=== PATIENT | female | born 1955 | race American Indian/Alaskan Native ===

== ENCOUNTER 2016-12-09 10:15 | Outpatient (CLI) | payer OTHER ==
--- NOTE | 2016-12-10 10:22 | Mammography Report ---
BILATERAL DIGITAL SCREENING MAMMOGRAM with CAD: 12/09/16 10:15:00 CLINICAL: Routine screening. COMPARISON:04/10/15 FINDINGS: The breasts are almost entirely fatty.Vague asymmetries correlate with bilateral skin lesions that are marked with scar markers. Bilateral benign calcifications. No mass, architectural distortion or suspicious calcifications. IMPRESSION: No mammographic evidence of malignancy. BI-RADS CATEGORY: 2 -- Benign RECOMMENDATION: Routine mammographic screening in one year. COMMENT: Patient follow-up letters are generated by our [employer] application.
== END 2016-12-09 10:16 | disposition home or self-care (01) ==
LOC: SPVWC 10:15
DX: Z12.31 Encounter for screening mammogram for malignant neoplasm of breast (principal)
CPT/HCPCS: 77067; G0202

== ENCOUNTER 2017-06-07 13:00 | Outpatient (CLI) | payer OTHER ==
--- NOTE | 2017-06-07 15:16 | XRay Report ---
Bilateral knees: History: Knee pain. Findings: Right knee: Minimal medial lateral and patellofemoral compartment degenerative sclerotic because of the peripheral osteophyte suggesting degenerative changes being most pronounced at the patellofemoral compartment. Left knee: Narrowing of the medial and patellofemoral compartment degenerative sclerotic articular surfaces with osteophyte suggesting degenerative changes being most pronounced in the patellofemoral compartment. Impression: Degenerative changes right and left knee as detailed above.
== END 2017-06-07 13:01 | disposition home or self-care (01) ==
LOC: SPVIMAG 13:00
DX: M17.0 Bilateral primary osteoarthritis of knee (principal)

== ENCOUNTER 2017-12-09 10:52 | Outpatient (CLI) | payer OTHER ==
--- NOTE | 2017-12-09 11:44 | Mammography Report ---
Screening mammogram: Routine views compared to exams dating back to 2015. The patient has multiple surgical site in both breasts which appear to be associated with vague areas of parenchymal density. The remainder the breast pattern is generally fatty replaced bilaterally. These findings are all unchanged compared to prior exams. CAD used. Impression: Stable exam. No suspicious findings. Recommendation: Annual mammogram followup. BI-RADS CATEGORY: 1 = Negative ACR BI-RADS MAMMOGRAPHIC CODES: 0 = Needs additional imaging evaluation; 1 = Negative; 2 = Benign; 3 = Probably benign; 4 = Suspicious; 5 = Malignant; 6 = Known biopsy-proven malignancy COMMENT: 1. Dense breast tissue, i.e., adenosis, fibrocystic changes, etc., may obscure an underlying neoplasm. 2. Approximately 10% of cancers are not detected with mammography. 3. A negative mammography report should not delay biopsy if a clinically suspicious mass is present.
== END 2017-12-09 10:53 | disposition home or self-care (01) ==
LOC: SPVWC 10:52
DX: Z12.31 Encounter for screening mammogram for malignant neoplasm of breast (principal)
CPT/HCPCS: 77067